=== PATIENT | female | born 1995 | race African-American/Black ===

== ENCOUNTER 2023-06-20 07:36 | Emergency (ER) | payer OTHER ==
[~2023-06-20] VITALS: Ht 152.4 cm; Wt 80.4 kg
[2023-06-20 08:11] VITALS: BP 137/66; PULSE 82; RESP 18; TEMP 97.3; O2SAT 99
[2023-06-20] MEDS ORDERED: methylPREDNISolone SOD SUCC 40 MG/ML VL IV ONE (08:30)
[2023-06-20] MEDS ORDERED: FAMOTIDINE 20 MG TAB PO ONE (08:30)
[2023-06-20] MEDS ORDERED: LORATADINE 10 MG TAB PO ONE (08:30)
[2023-06-20] MEDS ORDERED: METH4PAK PO (08:38)
[2023-06-20] MEDS ORDERED: EPIN0.3I24 IJ (08:38)
[2023-06-20] MEDS ORDERED: DIPH-753 PO (08:38)
== END 2023-06-20 09:20 | disposition home or self-care (01) ==
LOC: ER 07:36
DX: L50.9 Urticaria, unspecified (principal); Z79.899 Other long term (current) drug therapy
CPT/HCPCS: 96374; 99283; J2920

== ENCOUNTER 2024-06-16 12:45 | Emergency (ER) | payer MEDICAID, OTHER ==
[~2024-06-16] VITALS: Ht 152.4 cm; Wt 85.7 kg
[~2024-06-16 12:45] MED LIST: DIPH-753 PO; EPIN0.3I24 IJ; METH4PAK PO
[2024-06-16 13:55] VITALS: BP 121/81; PULSE 76; RESP 16; TEMP 98.4; O2SAT 99
[2024-06-16] MEDS ORDERED: IBUP-2008 PO (14:24)
[2024-06-16] MEDS: KETOROLAC TROMETH 30 MG/ML 1ML VIAL IM ONE (14:24)
[2024-06-16] MEDS ORDERED: CYCL-839 PO (14:24)
== END 2024-06-16 14:24 | disposition home or self-care (01) ==
LOC: ER 12:45
DX: M54.50 Low back pain, unspecified (principal); V49.9XXA Car occupant (driver) (passenger) injured in unspecified traffic accident, initial encounter; Y93.89 Activity, other specified; Y92.488 Other paved roadways as the place of occurrence of the external cause; Y99.8 Other external cause status
CPT/HCPCS: 96372; 99283; J1885

== ENCOUNTER 2025-06-06 09:40 | Emergency (ER) | payer MEDICAID, OTHER ==
[~2025-06-06] VITALS: Ht 154.9 cm; Wt 83.8 kg
[~2025-06-06 09:40] MED LIST changes: +CYCL-839 PO; +IBUP-2008 PO
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
[2025-06-06 11:06] VITALS: BP 118/82; PULSE 89; RESP 18; TEMP 98.1; O2SAT 100
[2025-06-06] MEDS ORDERED: IBUP-1456 PO (11:06)
[2025-06-06] MEDS ORDERED: METH-1182 PO (11:06)
== END 2025-06-06 11:10 | disposition home or self-care (01) ==
LOC: ER 09:40
DX: S16.1XXA Strain of muscle, fascia and tendon at neck level, initial encounter (principal); S00.83XA Contusion of other part of head, initial encounter; R51.9 Headache, unspecified; Z79.899 Other long term (current) drug therapy; Z79.1 Long term (current) use of non-steroidal anti-inflammatories (NSAID); V89.2XXA Person injured in unspecified motor-vehicle accident, traffic, initial encounter; Y93.89 Activity, other specified; Y92.488 Other paved roadways as the place of occurrence of the external cause; Y99.8 Other external cause status
CPT/HCPCS: 70450; 72040